=== PATIENT | male | born 1980 | race Two or more races ===

== ENCOUNTER 2022-07-19 20:34 | Emergency (ER) | payer MEDICAID, OTHER ==
[~2022-07-19] VITALS: Ht 170.2 cm; Wt 76.3 kg
[2022-07-19 21:15] VITALS: BP 122/80
[2022-07-19] MEDS ORDERED: ACETAMINOPHEN 325 MG TAB PO ONE (21:45)
== END 2022-07-20 00:46 | disposition home or self-care (01) ==
LOC: ER 20:34
DX: S16.1XXA Strain of muscle, fascia and tendon at neck level, initial encounter (principal); V43.52XA Car driver injured in collision with other type car in traffic accident, initial encounter; Y93.89 Activity, other specified; Y92.89 Other specified places as the place of occurrence of the external cause; Y99.8 Other external cause status
CPT/HCPCS: 70450; 72125